=== PATIENT | male | born 1985 | race African-American/Black ===

== ENCOUNTER 2023-08-15 18:40 | Emergency (ER) | payer BC, SELFPAY ==
[2023-08-15 18:51] VITALS: BP 126/74; PULSE 81; RESP 20; TEMP 36.2; O2SAT 100
--- NOTE | 2023-08-16 00:01 | PC.NURSE ---
Patient called for room assignment, no answer and not seen in waiting room.
== END 2023-08-16 00:03 | disposition left against medical advice (07) ==
DX: R51.9 Headache, unspecified (principal)
CPT/HCPCS: 99199